=== PATIENT | male | born 1965 | race Caucasian/White ===

== ENCOUNTER 2016-12-05 06:31 | Emergency (ER) | payer MEDICAID, OTHER ==
[2016-12-05 06:50] VITALS: O2SAT 98
[2016-12-05 07:31] VITALS: RESP 17
--- NOTE | 2016-12-05 07:40 | C.PDOC ---
History Of Present Illness 51y.o male, PMHx includes Hypertension and Migraines, presents to the emergency department with complaints of migraine and dizziness. Patient states that yesterday, he felt like his blood pressure was high, but did not check it; patient took his carvedilol and fell asleep. When he woke up this morning, he had a migraine, for which he took an unknown medication for migraines and another dose of BP meds. Patient developed dizziness, resulting in him coming to the ED for evaluation. Dizziness last <1 hour. (-) subjective neurological changes. (-) headache. Denies nausea/vomiting, numbness/weakness, visual/speech changes, chest pain, shortness of breath, fevers or chills. No other complaints at this time. Time Seen by Provider: 12/05/16 07:30 Chief Complaint (Nursing): Weakness/Neurological Deficit History Per: Patient History/Exam Limitations: no limitations Onset/Duration Of Symptoms: Days (1) Current Symptoms Are (Timing): Still Present Past Medical History Reviewed: Historical Data, Nursing Documentation, Vital Signs Vital Signs: Last Vital Signs Temp 97.5 F L 12/05/16 07:54 Pulse 68 12/05/16 07:54 Resp 17 12/05/16 07:54 BP 139/83 12/05/16 07:54 Pulse Ox 98 12/05/16 09:01 - Medical History PMH: HTN, Hypercholesterolemia, Migraine Denies: Chronic Kidney Disease - [facility] Procedures CLOSURE SKIN & SUBCUTANEOUS NEC (01/10/14) INJECT/INFUSE NEC (03/10/13) Family History: States: No Known Family Hx, Diabetes - Social History Hx Tobacco Use: No Hx Alcohol Use: No Hx Substance Use: No - Immunization History Hx Tetanus Toxoid Vaccination: No Hx Influenza Vaccination: No Hx Pneumococcal Vaccination: No Review Of Systems Except As Marked, All Systems Reviewed And Found Negative. Constitutional: Negative for: Fever, Chills Cardiovascular: Negative for: Chest Pain, Palpitations Respiratory: Negative for: Shortness of Breath Gastrointestinal: Negative for: Nausea, Vomiting Neurological: Positive for: Headache (Migraine), Dizziness Physical Exam - Physical Exam Appears: Non-toxic, No Acute Distress Skin: Warm, Dry, No Rash Head: Atraumatic, Normacephalic Eye(s): bilateral: Normal Inspection, PERRL, EOMI Nose: Normal Oral Mucosa: Moist Lips: Normal Appearing Neck: Normal ROM Chest: Symmetrical Cardiovascular: Rhythm Regular, No Murmur Respiratory: Normal Breath Sounds, No Accessory Muscle Use Gastrointestinal/Abdominal: Soft, No Tenderness Extremity: Normal ROM Neurological/Psych: Oriented x3, Normal Speech, Normal Cognition, Normal Cranial Nerves, Other (no focal deficits) ED Course And Treatment O2 Sat by Pulse Oximetry: 98 Progress Note: Pt was recommended labs for further evaluation. Pt requests to be discharge noting he feels fine now and will see his doctor later today. Leaving Against Medical Advice (AMA): This patient is choosing to leave against medical advice. I have personally explained to the pt. that choosing to do so may result in permanent bodily harm or . I have discussed at great. length that without further evaluation and monitoring there may be unforeseen circumstances and/or. deterioration causing permanent bodily harm or as a result of their choice. The pt verbalized. these risks back to the physician in laymans terms. The pt is alert, oriented, and shows the mental. capacity to make clear decisions regarding the pts health care at this time. The pt continues to wish. to leave against medical advice. In light of the pts decision to leave AMA, follow-up has been arranged and the pt is aware of. the importance of following up as instructed. The pt has been advised that they should return to the. ED immediately if they change their mind at any time, or if their condition begins to change or worsen. in any way. Disposition - Disposition Disposition: AGAINST MEDICAL ADVICE Disposition Time: 07:38 Condition: STABLE Additional Instructions: Vaya a blanca mdico o la clnica en 2-5 hinds sin falta, para mas evaluacin. [place] los medicamentos jacquelin indicado. Volver a la alina de emergencia en cualquier momento si los sntomas persisten o empeoran. Instructions: Acute Headache (ED) Forms: (AMA) Informed Refusal Print Language: LITHUANIAN - Clinical Impression Clinical Impression: Headache - Scribe Statement The provider has reviewed the documentation as recorded by the Scribe Vi Barney All medical record entries made by the Scribe were at my direction and personally dictated by me. I have reviewed the chart and agree that the record accurately reflects my personal performance of the history, physical exam, medical decision making, and the department course for this patient. I have also personally directed, reviewed, and agree with the discharge instructions and disposition.
[2016-12-05 07:55] VITALS: BP 139/83; PULSE 68; TEMP 97.5
== END 2016-12-05 07:55 | disposition left against medical advice (07) ==
LOC: C.ER 06:31
DX: R51 Headache (principal); I10 Essential (primary) hypertension; E78.00 Pure hypercholesterolemia, unspecified

== ENCOUNTER 2017-06-14 13:26 | Emergency (ER) | payer SELFPAY ==
[2017-06-14 13:44] VITALS: BP 135/85; PULSE 83; RESP 16; TEMP 98.4; O2SAT 96
== END 2017-06-14 15:15 | disposition left against medical advice (07) ==
LOC: C.ER 13:26
DX: Z02.89 Encounter for other administrative examinations (principal); R42 Dizziness and giddiness

== ENCOUNTER 2018-09-22 11:10 | Emergency (ER) | payer SELFPAY ==
[2018-09-22 11:17] VITALS: BP 142/84; PULSE 70; RESP 20; TEMP 98.2; O2SAT 99
--- NOTE | 2018-09-22 11:43 | C.PDOC ---
History Of Present Illness 53 year old male presents to ED with complaint of vertigo that began while he was working today. Patient states that he feels like things are spinning. Patient had a PMHx of hypercholestrolemia, hypertension, migraines, and vertigo. Patient takes medicine for his migraines at home, but wasn't sure if this was due to his blood pressure or vertigo. He is compliant with his blood pressure medication. He denies head trauma, headache, nausea, chest pain, SOB, and belly pain. <Em Mckeon - Last Filed: 09/22/18 14:01> <Tanisha Griggs - Last Filed: 09/22/18 12:46> History Per: Patient History/Exam Limitations: no limitations Onset/Duration Of Symptoms: Hrs Current Symptoms Are (Timing): Still Present Activity At Onset Of Symptoms: Standing <Em Mckeon - Last Filed: 09/22/18 14:01> Time Seen by Provider: 09/22/18 11:25 Chief Complaint (Nursing): Dizziness/Lightheaded Past Medical History Vital Signs: Last Vital Signs Temp 98.2 F 09/22/18 11:14 Pulse 70 09/22/18 11:14 Resp 20 09/22/18 11:14 BP 142/84 09/22/18 11:14 Pulse Ox 99 09/22/18 11:43 - [facility] Procedures CLOSURE SKIN & SUBCUTANEOUS NEC (01/10/14) INJECT/INFUSE NEC (03/10/13) <Tanisha Griggs - Last Filed: 09/22/18 12:46> Reviewed: Historical Data, Nursing Documentation, Vital Signs Vital Signs: Last Vital Signs Temp 98.2 F 09/22/18 11:14 Pulse 70 09/22/18 11:14 Resp 20 09/22/18 11:14 BP 142/84 09/22/18 11:14 Pulse Ox 99 09/22/18 11:14 - Medical History PMH: HTN, Hypercholesterolemia, Migraine Denies: Chronic Kidney Disease Surgical History: No Surg Hx - [facility] Procedures CLOSURE SKIN & SUBCUTANEOUS NEC (01/10/14) INJECT/INFUSE NEC (03/10/13) Family History: States: Unknown Family Hx, Diabetes - Social History Hx Tobacco Use: No Hx Alcohol Use: No Hx Substance Use: No - Immunization History Hx Tetanus Toxoid Vaccination: No Hx Influenza Vaccination: No Hx Pneumococcal Vaccination: No <Em Mckeon - Last Filed: 09/22/18 14:01> Review Of Systems Constitutional: Negative for: Fever, Chills, Weakness Cardiovascular: Negative for: Chest Pain Respiratory: Negative for: Shortness of Breath Gastrointestinal: Negative for: Nausea, Abdominal Pain Neurological: Positive for: Other (vertigo). Negative for: Weakness, Numbness, Headache <Em Mckeon - Last Filed: 09/22/18 14:01> Physical Exam - Physical Exam Appears: Well, Non-toxic, No Acute Distress Skin: Normal Color, Warm, Dry Head: Atraumatic, Normacephalic Eye(s): bilateral: PERRL, EOMI, Other (no nystagmus) Neck: Normal ROM, Supple Chest: Symmetrical, No Deformity Cardiovascular: Rhythm Regular, No Murmur Respiratory: No Accessory Muscle Use, No Rales, No Rhonchi, No Wheezing Gastrointestinal/Abdominal: Soft, No Tenderness Extremity: Capillary Refill (<2 seconds) Neurological/Psych: Oriented x3, Normal Speech, Normal Cognition, Cerebellar Signs, Normal Motor, Other (no pronator drift, finger to nose normal, MANDY normal) <Em Mckeon - Last Filed: 09/22/18 14:01> ED Course And Treatment - Laboratory Results Result Diagrams: 09/22/18 12:20 09/22/18 12:20 Lab Results: Total Bilirubin 0.9 mg/dL (0.2-1.3) 09/22/18 12:20 AST 37 U/L (17-59) 09/22/18 12:20 ALT 27 U/L (21-72) 09/22/18 12:20 Alkaline Phosphatase 76 U/L (38-126) 09/22/18 12:20 Total Protein 7.6 g/dL (6.3-8.3) 09/22/18 12:20 Albumin 4.7 g/dL (3.5-5.0) 09/22/18 12:20 Globulin 2.8 gm/dL (2.2-3.9) 09/22/18 12:20 Albumin/Globulin Ratio 1.7 (1.0-2.1) 03/28/19 12:20 <Tanisha Griggs - Last Filed: 09/22/18 12:46> - Laboratory Results Result Diagrams: 09/22/18 12:20 09/22/18 12:20 ECG: Interpreted By Me, Viewed By Me ECG Rhythm: Sinus Rhythm ECG Interpretation: Normal Rate From EC O2 Sat by Pulse Oximetry: 99 (in RA) <Em Mckeon - Last Filed: 09/22/18 14:01> Medical Decision Making Medical Decision Making: Impression: 53 year old male presents to ED with complaint of vertigo that began while he was working today. Plan: EKG done CMP and CBC ordered Patient given Antivert PO pt reports he is still felling dizzy after meclinzine; oerthostatic vs and fluids ordered. pt reports he wants to leave. risks and consequences of leavling ama explained. pt understands. <Em Mckeon - Last Filed: 09/22/18 14:01> Disposition <Tanisha Griggs - Last Filed: 09/22/18 12:46> Counseled Patient/Family Regarding: Studies Performed, Diagnosis, Need For Followup - Disposition Disposition Time: 13:47 <Em Mckeon - Last Filed: 09/22/18 14:01> - Disposition Disposition: AGAINST MEDICAL ADVICE Condition: FAIR Additional Instructions: Beber lquidos en aumento. [place] medicamentos para la presin arterial segn lo prescrito. [place] un seguimiento con blanca cardilogo y neurlogo. [place] meclizine segn lo prescrito. No maneje mientras est tomando tegan medicamento. Regrese a la alina de emergencias para cualquier sntoma que empeora. . Drink increased fluids. Take blood pressure medicine as prescribed. Follow up with your life science technical officer and neurologist. Take meclizine as prescribed -do not drive while taking this medicine. Return to ER for any worsening symtpms. . 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 (Bhavana Judd) - Scribe Statement The provider has reviewed the documentation as recorded by the Scribe (Bhavana Judd) All medical record entries made by the Scribe were at my direction and personally dictated by me. I have reviewed the chart and agree that the record accurately reflects my personal performance of the history, physical exam, medical decision making, and the department course for this patient. I have also personally directed, reviewed, and agree with the discharge instructions and disposition. <Em Mckeon - Last Filed: 09/22/18 14:01>
[2018-09-22 12:24] LABS: BASO % 0.5 % (0.0-2.0); EOS # 0.1 K/uL (0.0-0.7); EOS % 1.9 % (0.0-4.0); HEMOGLOBIN 15.8 g/dL (12.0-18.0); LYMPH # 2.7 K/uL (1.0-4.3); MEAN CELL VOLUME 86.1 fL (80.0-94.0); MEAN CORPUSCULAR HEMOGLOBIN 29.6 pg (27.0-31.0); MEAN CORPUSCULAR HGB CONC 34.5 g/dL (33.0-37.0); MEAN PLATELET VOLUME 7.4 fL (7.2-11.7); MONO # 0.6 K/uL (0.0-0.8); MONO % 10.4 % (0.0-10.0); NEUT # 2.4 K/uL (1.8-7.0); NEUT % 41.2 % (50.0-75.0); NRBC % 0.1 % (0.0-2.0); RBC 5.34 Mil/uL (4.40-5.90); RED CELL DISTRIBUTION WIDTH 12.7 % (11.5-14.5); WHITE BLOOD COUNT 5.9 K/uL (4.8-10.8)
[2018-09-22 12:37] LABS: ALB/GLOB RATIO 1.7 (1.0-2.1); ALBUMIN 4.7 g/dL (3.5-5.0); ALT/SGPT 27 U/L (21-72); AST/SGOT 37 U/L (17-59); BLOOD UREA NITROGEN 12 mg/dL (9-20); CALCIUM 9.6 mg/dl (8.6-10.4); GFR NON-AFRICAN AMERICAN > 60
[2018-09-22] MEDS ORDERED: Sodium Chloride 0.9% 1,000 ML IV ONE (13:21)
--- NOTE | 2018-09-23 11:10 | CARD ---
APPROVED REPORT Date of service: 09/22/2018 EKG Measurement Heart [id number] CO [id number] [id number] <Conclusion> Normal sinus rhythm Normal ECG
== END 2018-09-22 13:40 | disposition left against medical advice (07) ==
LOC: C.ER 11:10
DX: R42 Dizziness and giddiness (principal); I10 Essential (primary) hypertension; E78.00 Pure hypercholesterolemia, unspecified